=== PATIENT | male | born 1965 | race Caucasian/White ===

== ENCOUNTER → 2017-07-18 | Outpatient (CLI) | payer OTHER ==
[~2017-07-18] MED LIST: CLOP75TA28 PO; OLMETAB9 PO
[2017-07-18 09:50] VITALS: BP 153/88
[2017-07-18 10:00] VITALS: BP 148/77
[2017-07-18 11:53] LABS: Basophils # (auto) 0.1 uL; Basophils % (auto) 0.8 % (0.0-2.0); Eosinophils # (auto) 0.1 uL; Eosinophils % (auto) 1.2 % (0.0-7.0); Hematocrit 40.8 % (41.0-53.0); Lymphocytes # (auto) 1.5 uL; Lymphocytes % (auto) 23.5 % (10.0-50.0); Mean Corpuscular Hemoglobin 29.5 pg (28.0-32.0); Mean Corpuscular Hgb Conc. 34.4 g/dL (32.0-36.0); Mean Corpuscular Volume 85.9 fL (80.0-100.0); Monocytes # (auto) 0.5 uL; Monocytes % (auto) 8.4 % (0.0-12.0); Neutrophils # (auto) 4.1 uL; Neutrophils % (auto) 66.1 % (37.0-80.0); Nucleated Red Blood Cells % 0.1 %; Platelet Count (auto) 146 10^3/uL (140-450); Red Blood Cells 4.75 10^6/uL (4.5-5.90); Red Cell Distribution Width 13.3 % (11.8-14.3); White Blood Cell 6.2 10^3/uL (4.4-10.8)
[2017-07-18 12:21] LABS: BUN/Creatinine Ratio 20.2
[2017-07-18 15:02] LABS: INR 0.96 (0.9-1.15); Partial Thromboplastin Time 28.9 sec (22.64-33.71); Prothrombin Time 10.5 sec (9.37-12.3)
== END | disposition home or self-care (01) ==
LOC: Rad HDHVI 09:21
PROVIDERS: ATTEND Internal Medicine Cardiovascular Disease
DX: Z01.818 Encounter for other preprocedural examination (principal); I10 Essential (primary) hypertension; D64.9 Anemia, unspecified; R79.1 Abnormal coagulation profile
CPT/HCPCS: 36415; 71046; 80048; 85025; 85610; 85730; G0463

== ENCOUNTER 2017-07-20 10:16 | Inpatient (IN) | payer OTHER ==
[~2017-07-20] VITALS: Ht 188 cm; Wt 99.0 kg
[2017-07-20] MEDS ORDERED: IOHEXOL 350 MG/ML 100ML IJ ONE (10:41)
[2017-07-20] MEDS ORDERED: LIDOCAINE 2%HCL (LOCAL ANESTH.) INJ 20ML MDV ONE (10:41)
[2017-07-20] MEDS ORDERED: fentaNYL CITRATE 100 MCG/2 ML VL ONE (11:05)
[2017-07-20] MEDS ORDERED: MIDAZOLAM HCL 1MG/1ML-2 ML VIAL ONE (11:05)
[2017-07-20] MEDS ORDERED: SODIUM CHL 0.9% 50 ML ONE (11:05)
[2017-07-20] MEDS ORDERED: ANGIOMAX 250 MG VIAL IV ONE (11:05)
[2017-07-20] MEDS ORDERED: CLOPIDOGREL 300 MG TAB ONE (11:40)
[2017-07-20] MEDS ORDERED: ZOLPIDEM TARTRATE 5 MG TAB PO PRN (12:00)
[2017-07-20] MEDS ORDERED: MORPHINE SULF INJ 2 MG/ML SYRINGE 1ML IV PRN (12:00)
[2017-07-20] MEDS ORDERED: ACETAMINOPHEN 500 MG TAB PO PRN (12:00)
[2017-07-20] MEDS ORDERED: NITROGLYCERIN 0.4 MG SL TAB SL PRN (12:00)
[2017-07-20] MEDS ORDERED: LORazepam 0.5 MG TAB PO PRN (12:00)
[2017-07-20] MEDS ORDERED: MORPHINE SULFATE 10 MG/ML INJ 1ML SDV IV PRN ×2 (12:00→17:15)
[2017-07-20] MEDS ORDERED: ONDANSETRON HCL 4 MG/2 ML VIAL IV PRN (12:00)
[2017-07-20 17:01] VITALS: BP 144/97
[2017-07-20] MEDS: HYDROcodone-ACET 5/325MG TAB PO PRN (20:01)
[2017-07-20 22:00] VITALS: BP 140/78
[2017-07-21 05:00] VITALS: BP 122/70
[2017-07-21] MEDS: HYDROcodone-ACET 5/325MG TAB PO PRN (07:47)
[2017-07-21 08:00] VITALS: BP 129/92
[2017-07-21 09:00] VITALS: BP 129/92
[2017-07-21] MEDS ORDERED: [UNRECOGNIZED DRUG - OTHER] PO SCH (10:00)
[2017-07-21] MEDS ORDERED: ASPirin-EC 81 mg tab PO SCH (10:00)
[2017-07-21] MEDS ORDERED: CLOPIDOGREL BISULFATE 75 MG TAB PO SCH ×2 (10:00)
[2017-07-21 11:01] VITALS: BP 129/92
[2017-07-21 13:30] VITALS: BP 134/72
== END 2017-07-21 14:08 | disposition home or self-care (01) | DRG 247 ==
LOC: CATH 10:16 → EAST 15:12 → TELE-EAST 17:01
PROVIDERS: ADMIT Internal Medicine Cardiovascular Disease; ATTEND Internal Medicine Cardiovascular Disease
PROC: B2111ZZ Fluoroscopy of Multiple Coronary Arteries using Low Osmolar Contrast (ICD-10-PCS; principal; 2017-07-20)
PROC: 027034Z Dilation of Coronary Artery, One Artery with Drug-eluting Intraluminal Device, Percutaneous Approach (ICD-10-PCS; 2017-07-20)
PROC: 4A023N7 Measurement of Cardiac Sampling and Pressure, Left Heart, Percutaneous Approach (ICD-10-PCS; 2017-07-20)
PROC: B2151ZZ Fluoroscopy of Left Heart using Low Osmolar Contrast (ICD-10-PCS; 2017-07-20)
DX: I25.110 Atherosclerotic heart disease of native coronary artery with unstable angina pectoris (principal); E78.5 Hyperlipidemia, unspecified; I10 Essential (primary) hypertension; Z82.49 Family history of ischemic heart disease and other diseases of the circulatory system
CPT/HCPCS: 92928; 93458; 99152; 99153; C1874; J2250

== ENCOUNTER → 2019-12-16 | Outpatient (CLI) | payer OTHER ==
[~2019-12-16] VITALS: Ht 188 cm; Wt 97.5 kg
== END | disposition home or self-care (01) ==
LOC: Rad HDHVI 13:06
PROVIDERS: ATTEND Internal Medicine Cardiovascular Disease
DX: I25.10 Atherosclerotic heart disease of native coronary artery without angina pectoris (principal); I11.0 Hypertensive heart disease with heart failure; I50.23 Acute on chronic systolic (congestive) heart failure; R07.89 Other chest pain; Z82.49 Family history of ischemic heart disease and other diseases of the circulatory system
CPT/HCPCS: 78452; 93017; 93306; 96374; A9500

== ENCOUNTER → 2022-03-21 | Outpatient (CLI) | payer OTHER | END | disposition home or self-care (01) | LOC: Rad HDHVI 15:00 | PROVIDERS: ATTEND Internal Medicine Cardiovascular Disease | DX: I34.0 Nonrheumatic mitral (valve) insufficiency (principal); R07.89 Other chest pain; R06.02 Shortness of breath | CPT/HCPCS: 93306; 93880 ==

== ENCOUNTER → 2022-04-04 | Outpatient (CLI) | payer OTHER | END | disposition home or self-care (01) | LOC: Rad HDHVI 14:07 | PROVIDERS: ATTEND Internal Medicine Cardiovascular Disease | DX: I10 Essential (primary) hypertension (principal); I25.10 Atherosclerotic heart disease of native coronary artery without angina pectoris; R42 Dizziness and giddiness; R07.89 Other chest pain; R06.02 Shortness of breath; E78.00 Pure hypercholesterolemia, unspecified; Z82.49 Family history of ischemic heart disease and other diseases of the circulatory system | CPT/HCPCS: 78452; 93017; 96374; A9500 ==

== ENCOUNTER → 2024-10-16 | Outpatient (CLI) | payer OTHER ==
[~2024-10-16] MED LIST changes: +OLME-49 PO; -OLMETAB9 PO
[2024-10-16 15:40] VITALS: BP 154/86; PULSE 62; RESP 16
[2024-10-16] MEDS: cloNIDine HCL 0.1 MG TAB PO ONE (15:48)
[2024-10-16] MEDS: cloNIDine HCL 0.1 MG TAB ONE (16:01)
== END | disposition home or self-care (01) ==
LOC: CHF HDHVI 15:43
PROVIDERS: ATTEND Internal Medicine Cardiovascular Disease
DX: I11.0 Hypertensive heart disease with heart failure (principal); I50.23 Acute on chronic systolic (congestive) heart failure; I25.10 Atherosclerotic heart disease of native coronary artery without angina pectoris; E78.00 Pure hypercholesterolemia, unspecified
CPT/HCPCS: G0463

== ENCOUNTER 2025-01-13 15:43 | Outpatient (CLI) | payer OTHER | END 2025-01-13 17:00 | disposition home or self-care (01) | LOC: Rad HDHVI 15:43 | PROVIDERS: ATTEND Internal Medicine Cardiovascular Disease | DX: I08.8 Other rheumatic multiple valve diseases (principal); I11.9 Hypertensive heart disease without heart failure | CPT/HCPCS: 93306 ==

== ENCOUNTER 2025-01-22 14:33 | Outpatient (CLI) | payer OTHER ==
[~2025-01-22] VITALS: Ht 185.4 cm; Wt 98.9 kg
== END 2025-01-22 17:00 | disposition home or self-care (01) ==
LOC: Rad HDHVI 14:33
PROVIDERS: ATTEND Internal Medicine Cardiovascular Disease
DX: I49.3 Ventricular premature depolarization (principal); I49.1 Atrial premature depolarization; R00.0 Tachycardia, unspecified; I11.0 Hypertensive heart disease with heart failure; I50.23 Acute on chronic systolic (congestive) heart failure; I25.10 Atherosclerotic heart disease of native coronary artery without angina pectoris; E78.00 Pure hypercholesterolemia, unspecified; Z95.820 Peripheral vascular angioplasty status with implants and grafts; Z82.49 Family history of ischemic heart disease and other diseases of the circulatory system
CPT/HCPCS: 78452; 93017; A9500; 96374

== ENCOUNTER 2025-02-12 16:22 | Outpatient (CLI) | payer OTHER | END 2025-02-12 17:00 | disposition home or self-care (01) | LOC: Rad HDHVI 16:22 | PROVIDERS: ATTEND Internal Medicine Cardiovascular Disease | DX: I10 Essential (primary) hypertension (principal) | CPT/HCPCS: 93880 ==